=== PATIENT | male | born 1960 ===

== ENCOUNTER 2017-03-11 02:52 | Emergency (ER) | payer SELFPAY ==
[2017-03-11 02:55] VITALS: BMI 23.8
--- NOTE | 2017-03-11 03:02 | ED PDOC ---
Arrival/HPI - General Chief Complaint: Alcohol Ingestion Historian: Patient - History of Present Illness Narrative History of Present Illness (Text): 03/11/17 02:45 Ranulfo Flores is a 55 year old male who presents to the Emergency department brought in by EMS for public intoxication tonight. As per EMS, relative stated patient has been drinking alcohol throughout the day.Also using marijuana. Limited HPI and ROS secondary to patient's intoxication. Time/Duration: Other (today) Symptom Onset: Gradual Symptom Course: Unchanged Activities at Onset: Light Context: Home Past Medical History - Provider Review Nursing Documentation Reviewed: Yes Family/Social History - Physician Review Nursing Documentation Reviewed: Yes Family/Social History: Unknown Family HX Allergies/Home Meds Allergies/Adverse Reactions: Allergies No Known Allergies Allergy (Verified 03/11/17 02:54) Home Medications: Home Meds Medication Instructions Recorded Confirmed Unobtainable 03/11/17 03/11/17 Review of Systems - Review of Systems Systems not reviewed;Unavailable: Intoxicated Psychiatric: Other (+alcohol intoxication) Physical Exam Vital Signs Reviewed: Yes Vital Signs Temp Pulse Resp BP Pulse Ox 03/11/17 05:52 101 H 17 142/89 98 03/11/17 02:56 97.8 F 102 H 18 148/98 H 98 Temperature: Afebrile Blood Pressure: Normal Pulse: Regular Respiratory Rate: Normal Pain Distress: None Mental Status: Positive for: other (Intoxicated) - Systems Exam Head: Present: Atraumatic, Normocephalic Pupils: Present: PERRL Extroacular Muscles: Present: EOMI Conjunctiva: Present: Normal Mouth: Present: Moist Mucous Membranes Neck: Present: Normal Range of Motion Respiratory/Chest: Present: Clear to Auscultation, Good Air Exchange. No: Respiratory Distress, Accessory Muscle Use Cardiovascular: Present: Regular Rate and Rhythm, Normal S1, S2. No: Murmurs Abdomen: Present: Normal Bowel Sounds. No: Tenderness, Distention, Peritoneal Signs Back: Present: Normal Inspection Upper Extremity: Present: Normal Inspection. No: Cyanosis, Edema Lower Extremity: Present: Normal Inspection. No: Edema Neurological: Present: GCS=15, CN II-XII Intact, Speech Normal Skin: Present: Warm, Dry, Normal Color. No: Rashes Psychiatric: Present: Intoxicated Medical Decision Making ED Course and Treatment: 03/11/17 02:45 Impression: 55 year old male brought in for public intoxication tonight. Differential Diagnosis included but are not limited to: alcohol intoxication Plan: -- Reassess and disposition Progress Notes: 03/11/17 07:00 Case endorsed to ,pending sobriety/reassess/final disposition - Scribe Statement The provider has reviewed the documentation as recorded by the Bethibjeremy Osorio Provider Scribe Attestation: All medical record entries made by the Scribe were at my direction and personally dictated by me. I have reviewed the chart and agree that the record accurately reflects my personal performance of the history, physical exam, medical decision making, and the department course for this patient. I have also personally directed, reviewed, and agree with the discharge instructions and disposition. Disposition/Present on Arrival - Present on Arrival Any Indicators Present on Arrival: No - Disposition Have Diagnosis and Disposition been Completed?: No Diagnosis: Alcohol intoxication Disposition Time: 07:00 Condition: STABLE Forms: [facility] ([place])
[2017-03-11 07:19] VITALS: O2SAT 100
[2017-03-11 09:27] VITALS: BP 150/92; PULSE 70; RESP 17; TEMP 98.6
== END 2017-03-11 09:25 | disposition home or self-care (01) ==
LOC: EDBD 02:52 → ED 02:52
DX: F10.129 Alcohol abuse with intoxication, unspecified (principal); Y90.9 Presence of alcohol in blood, level not specified